=== PATIENT | male | born 1995 | race Caucasian/White ===

== ENCOUNTER 2016-04-25 00:25 | Emergency (ER) | payer OTHER ==
[2016-04-25 00:36] VITALS: BP 133/74; PULSE 70; TEMP 98.2; BMI 25.7
--- NOTE | 2016-04-25 00:44 | PDOC ---
History of Present Illness <Tomasz El - Last Filed: 04/25/16 00:45> - General History Source: Patient Exam Limitations: No Limitations - History of Present Illness Initial Comments: 04/25/16 00:44 The patient is a 21 year old male with no significant past medical history who presents to the ED with several days of right shoulder pain. Patient states after waking up today he noted some discomfort radiating the right arm with some slight swelling. He admits to sleeping on his right side. His right shoulder pain is worsened with adduction and when he engages his deltoid muscles. Patient denies trauma to the area or lifting heavy objects. He states no changes to his routine or any recent strenuous physical activities. The patient denies fever, chills, cough, SOB, chest pain, and palpitations. The patient denies abdominal pain, nausea, vomiting, and diarrhea. PCP: Dr. Saini <Jessica Jacinto - Last Filed: 04/25/16 00:46> - General Chief Complaint: Pain, Acute Stated Complaint: RT ARM SWELLING Time Seen by Provider: 04/25/16 00:36 Past History - Past Medical History Asthma: Yes Suicide Attempt (Hx): No - Immunization History Immunization Up to Date: Yes - Psycho/Social/Smoking Cessation Hx Anxiety: No Suicidal Ideation: No Smoking History: Never smoked Have you smoked in the past 12 months: No Hx Alcohol Use: No Drug/Substance Use Hx: No Substance Use Type: None <Tomasz El - Last Filed: 04/25/16 00:45> <Jessica Jacinto - Last Filed: 04/25/16 00:46> - Past Medical History Allergies/Adverse Reactions: Allergies Allergy/AdvReac Type Severity Reaction Status Date / Time No Known Allergies Allergy Verified 04/25/16 00:33 Home Medications: Ambulatory Orders NK [No Known Home Medication] 04/25/16 Review of Systems - Review of Systems Able to Perform ROS?: Yes Is the patient limited Grenadian proficient: No Constitutional: No: Symptoms Reported HEENTM: No: Symptoms Reported Respiratory: No: Symptoms reported Cardiac (ROS): No: Symptoms Reported Musculoskeletal: Yes: Symptoms Reported, See HPI, Muscle Pain Neurological: No: Symptoms reported All Other Systems: Reviewed and Negative <Tomasz El - Last Filed: 04/25/16 00:45> *Physical Exam - Vital Signs Last Vital Signs Temp Pulse Resp BP Pulse Ox 98.2 F 70 18 133/74 100 04/25/16 00:33 04/25/16 00:33 04/25/16 00:33 04/25/16 00:33 04/25/16 00:33 - Physical Exam General Appearance: Yes: Nourished, Appropriately Dressed. No: Apparent Distress HEENT: positive: Normal ENT Inspection Neck: positive: Supple. negative: Tender Respiratory/Chest: positive: Lungs Clear. negative: Chest Tender, Respiratory Distress Cardiovascular: positive: Regular Rhythm, Regular Rate Musculoskeletal: positive: Normal Inspection. negative: Vertebral Tenderness Extremity: positive: Normal Capillary Refill, Normal Inspection. negative: Normal Range of Motion (ltd ROM at deltoid engagement and point tenderness ) Integumentary: positive: Normal Color Neurologic: positive: independent insurance adjuster II-XII NML intact, Fully Oriented, Alert, Normal Mood/ Affect, Motor Strength 5/5 <Tomasz El - Last Filed: 04/25/16 00:45> - Vital Signs Last Vital Signs Temp Pulse Resp BP Pulse Ox 98.2 F 70 18 133/74 100 04/25/16 00:33 04/25/16 00:33 04/25/16 00:33 04/25/16 00:33 04/25/16 00:33 <Jessica Jacinto - Last Filed: 04/25/16 00:46> *DC/Admit/Observation/Transfer - Discharge Dispostion Admit: No <Tomasz El - Last Filed: 04/25/16 00:45> - Attestations Scribe Attestion: 04/25/16 00:45 Documentation prepared by Jessica Jacinto, acting as medical accounting clerk for Tomasz El MD <Jessica Jacinto - Last Filed: 04/25/16 00:46> Diagnosis at time of Disposition: Tendinitis - Discharge Dispostion Disposition: HOME Condition at time of disposition: Stable - Referrals Referrals: Aline Saini [Primary Care Provider] - Call tomorrow - Patient Instructions Additional Instructions: EXERCISES INSTRUCTED 3 TIMES A DAY AND ICE AFTERWARDS IBUPROFEN, 800 MG 3 TIMES A DAY FOR 3-5 DAYS SEE YOUR DOCTOR IN 3 DAYS RETURN IF WORSENING OR NEW SYMPTOMS
[2016-04-25] MEDS ORDERED: IBUPROFEN 400 MG TABLET (FP) PO ONE ×2 (00:45)
== END 2016-04-25 00:51 | disposition home or self-care (01) ==
LOC: JER 00:25
DX: M75.81 Other shoulder lesions, right shoulder (principal)
CPT/HCPCS: 99281-25; 99282-25